=== PATIENT | female | born 1945 | race Hispanic/Latino ===

== ENCOUNTER 2017-04-24 08:51 | Day surgery (SDC) | payer MEDICARE ==
[2017-04-21 11:13] VITALS: BMI 28.8
[2017-04-24 09:19] LABS: BASO # 0.04 K/mm3 (0.0-2.0); BASO % 0.5 % (0.0-3.0); EOS # 0.2 (0.0-0.7); EOS % 2.8 % (1.5-5.0); HEMOGLOBIN 11.7 gm/dL (12.0-16.0); LYMPH # 1.4 (1.2-3.4); MEAN CELL VOLUME 82.6 fL (80.0-105.0); MEAN CORPUSCULAR HEMOGLOBIN 26.1 pg (25.0-35.0); MEAN CORPUSCULAR HGB CONC 31.6 g/dl (31.0-37.0); MEAN PLATELET VOLUME 8.4 fl (7.0-11.0); MONO # 0.6 (0.1-0.6); MONO % 6.7 % (1.0-6.0); PLATELET COUNT 407 10^3/uL (120.0-450.0); RBC 4.48 10^6/uL (3.5-6.1); RED CELL DISTRIBUTION WIDTH 15.2 % (11.5-14.5); WHITE BLOOD COUNT 8.2 10^3/ul (4.5-11.0)
[2017-04-24 09:28] LABS: BLOOD UREA NITROGEN 8 mg/dL (7-21); CALCIUM 9.9 mg/dL (8.4-10.5); GFR AFRICAN-AMERICAN > 60; GFR NON-AFRICAN AMERICAN > 60; INR 1.02 (0.93-1.08)
--- NOTE | 2017-04-24 09:49 | CP.SDSHP ---
Same Day Surgery H & P - History Proposed Procedure: Lung biopsy for suspected tumor Pre-Op Diagnosis: Bilateral left larger and peripheral, right smaller central lung tumor - Previous Medical/Surgical History Cardiac: Hypertension Endocrine/Metabolic: Thyroid Disease (Hypothyroidism) Previous Surgical History: Cholecystectomy on 03/26/17, Csection x2 - Allergies Allergies: Allergies FISH Allergy (Severe, Verified 04/21/17 11:13) VOMITING iodine Allergy (Severe, Verified 04/21/17 11:13) VOMITING amlodipine [From Norvasc] Adverse Reaction (Intermediate, Verified 04/21/17 11: 13) DIZZINESS levothyroxine sodium [From Synthroid] Adverse Reaction (Intermediate, Verified 04/21/17 11:13) PAIN - Current Medications Current Medications: Amlodipine, levothyroxine - Physical Exam Vital Signs: Vital Signs 04/24/17 09:34 Temperature 98.1 F Pulse Rate 74 Respiratory 19 Rate Blood Pressure 123/68 O2 Sat by Pulse 95 Oximetry Neuro: WNL Heart: WNL Lungs: WNL GI: WNL - {Optional Preform as Required} Abdomen: WNL - Impression Impression: 72 F with recently diagnosed b/l lung left bigger and peripheral tumor for biopsy, no cardiovascular contraintications for the procedure Pt. Evaluated Today:Candidate for Anesthesia & Procedure: Yes - Date & Time Date: 04/24/17 Time: 09:49 Short Stay Discharge - Short Stay Discharge Admitting Diagnosis/Reason for Visit: LUNG MASS R91.1 Disposition: HOME/ ROUTINE Referrals: Oscar Claros MD [Primary Care Provider] -
[2017-04-24] MEDS ORDERED: Midazolam 2 MG/2 ML VIAL ONE (11:26)
[2017-04-24] MEDS ORDERED: Oxycodone/Acetaminophen 5/325 mg Tab PO PRN (12:20)
[2017-04-24] MEDS ORDERED: Sodium Chloride 0.45% 1,000 ML IV SCH (12:30)
[2017-04-24 13:35] VITALS: TEMP 98
--- NOTE | 2017-04-24 14:39 | RAD ---
HISTORY: lt lung bx COMPARISON: Head CT performed 04/17/17. TECHNIQUE: Chest, one view. FINDINGS: LUNGS: Hyperinflation may be seen in setting of COPD. 5.3 x 9.1 cm masslike opacity is within the left lower fadia thorax. Additional opacity consistent with soft tissue mass demonstrated on PET-CT within the right middle lobe. Please note that chest x-ray has limited sensitivity for the detection of pulmonary masses. PLEURA: No significant pleural effusion identified. No definite pneumothorax . CARDIOVASCULAR: Cardiomegaly. Atherosclerotic calcification of the aortic knob. OSSEOUS STRUCTURES: Degenerative changes. VISUALIZED UPPER ABDOMEN: Unremarkable. OTHER FINDINGS: None. IMPRESSION: Hyperinflation may be seen in setting of COPD. 5.3 x 9.1 cm masslike opacity, left lower fadia thorax. Additional opacity consistent with soft tissue mass demonstrated on PET-CT, right middle lobe. Cardiomegaly.
[2017-04-24 16:11] VITALS: BP 109/69; PULSE 71; RESP 20; O2SAT 95
--- NOTE | 2017-04-24 19:14 | CT ---
PROCEDURE: CT guided left lung biopsy. HISTORY: Bilateral lung masses. Evaluate for malignancy. Previous smoker. PHYSICIAN(S): Soto Serrano MD. TECHNIQUE: The relative risks and indications of the procedure were explained to the patient and consent obtained. The patient was placed supine on the CT scanner and preliminary images through the liver obtained. Conscious sedation and monitoring were provided throughout the procedure by a nurse. There is a noncalcified 6.8 cm mass in the lingula contiguous with the lateral chest wall. A left anterior approach was selected and the area prepped and draped in the usual sterile fashion. 1% Xylocaine was used to anesthetize the skin and soft tissues. A 19 gauge guiding needle was advanced into the X 0.8 cm left lung mass. Its position was confirmed with CT. Using coaxial technique, multiple core biopsies were obtained. The postprocedure images show no evidence of large pneumothorax or significant hemorrhage.. IMPRESSION: 1. CT-guided left lung biopsy as described above.
== END 2017-04-24 16:10 | disposition home or self-care (01) ==
LOC: SDS 08:51
PROVIDERS: ATTEND Radiology Vascular & Interventional Radiology
DX: C7A.1 Malignant poorly differentiated neuroendocrine tumors (principal); I10 Essential (primary) hypertension; E03.9 Hypothyroidism, unspecified; Z87.891 Personal history of nicotine dependence
CPT/HCPCS: 32405; 36415; 71010; 77012; 80048; 85025; 85610; 85730; 88305; J2250; J2405; J3010; J7030

== ENCOUNTER 2017-05-13 10:52 | Day surgery (SDC) | payer MEDICARE ==
[2017-04-21 11:13] VITALS: BMI 28.8
[2017-05-13 11:22] LABS: ADD MANUAL DIFF? NO
[2017-05-13 11:24] LABS: BASO # 0.05 K/mm3 (0.0-2.0); BASO % 0.6 % (0.0-3.0); EOS # 0.4 (0.0-0.7); EOS % 4.2 % (1.5-5.0); GRAN # 6.32 (1.4-6.5); GRAN % 74.2 % (50.0-68.0); HEMATOCRIT 36.6 % (36.0-48.0); LYMPH # 1.3 (1.2-3.4); LYMPH % 15.1 % (22.0-35.0); MEAN CELL VOLUME 82.1 fl (80.0-105.0); MEAN CORPUSCULAR HGB CONC 31.7 g/dl (31.0-37.0); MEAN PLATELET VOLUME 8.3 fl (7.0-11.0); MONO # 0.5 (0.1-0.6); MONO % 5.9 % (1.0-6.0); PLATELET COUNT 377 10^3/uL (120.0-450.0); RED CELL DISTRIBUTION WIDTH 15.4 % (11.5-14.5); WHITE BLOOD COUNT 8.5 10^3/ul (4.5-11.0)
[2017-05-13 11:33] LABS: BLOOD UREA NITROGEN 8 mg/dL (7-21); CALCIUM 9.7 mg/dL (8.4-10.5); CARBON DIOXIDE 31 mmol/L (21-33); CHLORIDE 101 mmol/L (95-110); GFR AFRICAN-AMERICAN > 60; GLUCOSE,RANDOM 88 mg/dL (70-110); POTASSIUM 3.9 mmol/L (3.6-5.0); SODIUM 140 mmol/L (132-148)
[2017-05-13 11:34] LABS: INR 1.02 (0.93-1.08); PARTIAL THROMBOPLASTIN TIME 27.7 Seconds (23.7-30.8)
[2017-05-13] MEDS ORDERED: Midazolam 2 MG/2 ML VIAL ONE (13:57)
[2017-05-13] MEDS ORDERED: Oxycodone/Acetaminophen 5/325 mg Tab PO PRN (14:47)
[2017-05-13] MEDS ORDERED: Sodium Chloride 0.45% 1,000 ML IV SCH (15:00)
[2017-05-13 16:25] VITALS: RESP 18; TEMP 98.2
[2017-05-13 18:02] VITALS: PULSE 60
[2017-05-13 18:41] VITALS: BP 124/60; O2SAT 96
--- NOTE | 2017-05-13 18:45 | CT ---
PROCEDURE: CT guided left upper lobe lung biopsy. HISTORY: 5 x 7.5 cm left upper lobe lung mass. Second biopsy. PHYSICIAN(S): Soto Serrano MD. TECHNIQUE: The relative risks and indications of the procedure were explained to the patient and consent obtained. The patient was placed right decubitus position on the CT scanner and preliminary images through the mid lungs obtained. Conscious sedation and monitoring were provided throughout the procedure by a nurse. There is a noncalcified 5 x 7.5 cm mass in the lingula.. A different approach and region within the mass was selected for biopsy. A right lateral approach was selected and the area prepped and draped in the usual sterile fashion. 1% Xylocaine was used to anesthetize the skin and soft tissues. A 17-gauge guiding needle was advanced into the 5 x 7.5 cm lingula mass. Its position was confirmed with CT. Using coaxial technique, multiple core biopsies were obtained. The postprocedure images show no evidence of pneumothorax or significant hemorrhage.. IMPRESSION: 1. Repeat CT-guided left upper lobe lung biopsy as described above.
--- NOTE | 2017-05-14 07:43 | RAD ---
HISTORY: lt lung bx COMPARISON: 04/24/2017 FINDINGS: LUNGS: Large mass in the left lung measuring 5.3 x 7.8 cm. PLEURA: No significant pleural effusion identified, no pneumothorax apparent. CARDIOVASCULAR: Normal. OSSEOUS STRUCTURES: No significant abnormalities. VISUALIZED UPPER ABDOMEN: Normal. OTHER FINDINGS: None. IMPRESSION: No evidence of pneumothorax post biopsy
== END 2017-05-13 18:40 | disposition home or self-care (01) ==
LOC: SDS 10:52
PROVIDERS: ATTEND Radiology Vascular & Interventional Radiology
DX: C34.12 Malignant neoplasm of upper lobe, left bronchus or lung (principal)
CPT/HCPCS: 32405; 36415; 71010; 77012; 80048; 85025; 85610; 85730; 88305; J2250; J2405; J3010; J7030